=== PATIENT | male | born 1940 | race Caucasian/White ===

== ENCOUNTER 2023-09-06 18:32 | Emergency (ER) | payer OTHER, SELFPAY ==
[2023-09-06 18:35] VITALS: BP 147/97
--- NOTE | 2023-09-06 20:12 | ED.SKININJ ---
HPI-Injury
General
Chief Complaint: Skin Problem
Source: patient
Exam Limitations: none
Time Seen by Provider: 09/06/23 19:29
Nursing documentation reviewed up to this point in time: agreed with
History of Present Illness-Injury
Is this injury a work related problem?: No
Is pt an associate of [facility]?: No
Initial Injury comments:
Trying to open horse food with sharp blade and accidentally cut his finger. SUstained lac to left dorsal 3rd finger. Injury occurred just [employer].
Past History
Past History
ED Past Medical History: Arrthythmia (Atrial fibrillation) and Other (Arthritis)
ED Past Surgical History: Cardiac (Pacemaker, TAVR, Watchman procedure) and Orthopedic
Social History
Tobacco: Non-smoker
Alcohol: None
Personal:
Living: with family
Employment: Retired
Review of Systems
Review of Systems
Allergies reviewed?: Yes
All Other Systems: ROS reviewed and negative except as documented in HPI and ROS
Constitutional: Reports no symptoms
Musculoskeletal: Reports no symptoms
Skin: Reports other (Laceration left dorsal 3rd finger)
Neurological: Reports no symptoms
Psychiatric: Reports no symptoms
Skin Exam
Laceration
Left Dorsal Third Finger:
Length in cm: 2.5
Orientation: diagonal
Type of Laceration: simple
Any active bleeding?: low grade venous oozing
Distal skin color and temperature: normal-warm & good color
Normal distal neurovascular exam: Yes
Range of motion: full
Phy Exam
General Physical Exam
General Presentation: well appearing and no apparent distress
General age: appears stated age
General Skin: warm and dry
General Habitus: normal
Musculoskeletal Exam
Musculoskeletal Exam: full ROM and neuro vasc intact
Skin Exam
Skin Exam: normal color, warm/dry and no rash
Psychiatric Exam
Psychiatric Exam: normal mood/affect
Course
Orders/Labs/Results
Orders:
Orders
09/06/23 20:06
Cephalexin Monohydrate [Keflex] 500 mg PO NOW STA
Tetanus/Diphth/Acelpertussis [Adacel] 0.5 ml IM .ONCE ONE
Vital Signs
Initial and Last Documented VS:
Initial Vital Signs
Temp Pulse Resp BP Pulse Ox
98.6 F 96 18 147/97 97
09/06/23 18:35 09/06/23 18:35 09/06/23 18:35 09/06/23 18:35 09/06/23 18:35
Last Documented Vital Signs
Temp Pulse Resp BP Pulse Ox
98.6 F 96 18 147/97 97
09/06/23 18:35 09/06/23 18:35 09/06/23 18:35 09/06/23 18:35 09/06/23 18:35
Procedures
Laceration Closure
Left Dorsal Third Finger:
Status of Wound: clean
Description of Wound Edges: sharp
Preparation: cleaned with saline and cleaned with Betadine
Anesthesia: 1% Lidocaine
Revision/Debridement: routine- no revision and irrigate-direct pressure
Wound exploration: explored to base- no FB and no tendon involvement
Type of Closure: single layer closure
Skin Closure Material: 5-0 prolene
Number of sutures: 7
*Critical Care Note
Total Time (30-74mins, 75-104mins- exclusive of procedures): Not Applicable
ED Attending Note
-
Portions of this chart may have been created with voice recognition software.� Occasional wrong word or��sound alike� substitutions may have occurred due to the inherent limitations of voice recognition software.
Discharge Plan
Departure
Patient Disposition: Home (Routine Discharge)
Date of Disposition: 09/06/23
Time of Disposition: 20:08
Patient with high blood pressure during this ER visit?: No
Condition: Good
Covid-19: Not Applicable
Discharge Problem:
Finger laceration
Instructions: Laceration Repair With Stitches ED
Prescriptions:
New
cephalexin 500 mg capsule
500 mg PO BID 7 Days Qty: 14 0RF
No Action
ibuprofen 200 MG tablet
400 mg PO Q4HPRN PRN (Reason: mild pains)
cholecalciferol (vitamin D3) 1,000 UNITS tablet
1,000 units PO DAILY
Referrals:
Tomer Garg MD [Family Provider] - (Sutures can be removed in 7-10 days.)
Activity Restrictions/Additional Instructions:
Follow up with your family doctor in 2 days for a wound check.
Interventions
Interventions:
*Risk Screen - Suicide Last Done: 09/06/23 18:35
*General Assessment Last Done: 09/06/23 18:35
*Neglect/Abuse Screening Last Done: 09/06/23 18:35
ED- Fall Risk Assessment Last Done: 09/06/23 19:50
ED-Skin Assessment Last Done: 09/06/23 19:50
Discharge Date and Time
Print Language: [place]ET[place]
[2023-09-06] MEDS: KEFLEX 500 MG PO (20:18)
[2023-09-06] MEDS: ADACEL 0.5 ML IM (20:18)
[2023-09-06 20:25] VITALS: BP 137/91
== END 2023-09-06 20:27 | disposition home or self-care (01) ==
LOC: EMR 18:32
PROVIDERS: EMERGENCY PHYSICIAN Student in an Organized Health Care Education/Training Program; FAMILY PHYSICIAN Internal Medicine
DX: S61.213A Laceration without foreign body of left middle finger without damage to nail, initial encounter (principal); W26.0XXA Contact with knife, initial encounter; Z23 Encounter for immunization; I48.91 Unspecified atrial fibrillation; M19.90 Unspecified osteoarthritis, unspecified site; Z95.0 Presence of cardiac pacemaker
CPT/HCPCS: 99282; 12001; 90471; 90715